=== PATIENT | female | born 1960 | race African-American/Black ===

== ENCOUNTER → 2022-12-19 | Day surgery (SDC) | payer OTHER ==
--- NOTE | 2022-12-19 12:03 | RAD REPORT ---
EXAM DESCRIPTION: US - Breast Core BX w/US Guidance - 12/19/2022 10:54 am CLINICAL HISTORY: Right breast mass COMPARISON: 12/12/2022 ultrasound TECHNIQUE: The risks, benefits alternatives to the procedure were explained to the patient and infor med consent obtained. Skin and subcutaneous tissues anesthetized with lidocaine. Under sonographic guidance, three 14 gauge vacuum assisted core biopsies of the mass within the right breast obtained. 2 centimeter specimens taken. Tissue given to pathology. Subsequently a localizing clip was placed into the mass. Patient experienced no immediate complication IMPRESSION: Vacuum assisted core biopsies of the right breast mass.
== END ==
LOC: DS 09:08
PROVIDERS: ATTEND Surgery
DX: C50.911 Malignant neoplasm of unspecified site of right female breast (principal); Z17.1 Estrogen receptor negative status [ER-]
CPT/HCPCS: 19083; 88305

== ENCOUNTER 2023-01-04 05:50 | Day surgery (SDC) | payer OTHER ==
--- NOTE | 2023-01-02 08:48 | RAD REPORT ---
EXAM DESCRIPTION: RAD - Chest Pa And Lat (2 Views) - 01/02/2023 8:35 am CLINICAL HISTORY: pre op for surgery, hypertension, diabetes, breast cancer COMPARISON: Breast Bilat W Wo Cont dated 12/08/2022; IMP 3D DIAG JOHN BILAT W/CAD dated 11/08/2022; ABHILASH AST/AXILLA, COMPLETE dated 12/12/2022; Breast Core BX w/US Guidance dated 12/19/2022 FINDINGS: Lines: None. Lungs: No evidence of edema or pneumonia. Pleural: No significant pleural effusions or pneumothorax. Cardiac: The heart size is within normal limits. Mediastinum: Within normal limits. Bones: No acute fractures. Other: None IMPRESSION: No acute cardiopulmonary disease.
--- NOTE | 2023-01-02 11:41 | EKG ---
Test Date: 2023-01-02 Test Time: 08:13:59 Coordinator Cardiopulmonary Services: LOIS MEASUREMENT RESULTS: Intervals: Rate: 79 IN: 166 QRSD: 78 QT: 382 QTc: 438 [place]: P: 89 IN: 166 QRS: 69 T: 64 INTERPRETIVE STATEMENTS: Normal sinus rhythm with sinus arrhythmia Normal ECG Compared to ECG 09/29/2016 09:55:05 No significant changes Electronically Signed On 01-02-23 11:41:13 CDT by Juan Manuel Parker
[2023-01-04] MEDS ORDERED: LIDOCAINE 1% MPF 5 ML VIAL ONE (06:15)
[2023-01-04] MEDS ORDERED: FENTANYL CITR 100 MCG/2 ML ONE ×2 (06:16→09:01)
[2023-01-04] MEDS ORDERED: dexAMETHasone 10 MG/ML VIAL ONE (06:16)
[2023-01-04] MEDS ORDERED: propofoL 200 MG/20 ML VIAL IV ONE ×2 (06:16→09:01)
[2023-01-04] MEDS ORDERED: EPINEPHRINE/PF 1 MG/ML AMP ONE (06:16)
[2023-01-04] MEDS ORDERED: MIDAZOLAM HCL 2 MG/2 ML INJ ONE ×2 (06:16→09:03)
[2023-01-04] MEDS ORDERED: BUPIVACAINE 0.25% PF 30 ML VIAL ONE (06:17)
[2023-01-04] MEDS ORDERED: NA CHLORIDE 0.9% 1,000 ML ONE ×2 (06:18→11:57)
[2023-01-04] MEDS ORDERED: CIPROFLOXACIN 400mg IV 400 MG/200 ML BAG IV ONE (06:19)
[2023-01-04] MEDS ORDERED: METHYLENE BLUE 0.5% 10 ML AMP ONE (08:29)
--- NOTE | 2023-01-04 08:40 | RAD REPORT ---
EXAM DESCRIPTION: NM - Lymphoscintigraphy - 01/04/2023 7:58 am CLINICAL HISTORY: pre mastectomy Right-sided breast cancer COMPARISON: Chest Pa And Lat (2 Views) dated 01/02/2023 FINDINGS: Preoperative lymphoscintigraphy were performed. Total of 29 microcuries lymphocele were in jected periareolar intradermal. Immediate scintigraphic shows good localization of radiopharmaceutica l.
--- NOTE | 2023-01-04 08:57 | RAD REPORT ---
EXAM DESCRIPTION: US - Brst,Preop NL Wire Init w/Guid - 01/04/2023 8:26 am CLINICAL HISTORY: N Right breast carcinoma. COMPARISON: Breast Core BX w/US Guidance dated 12/19/2022 FINDINGS: Preoperative diagnosis: Right breast carcinoma. Post operative diagnosis: Same. Conscious Sedation: None Fluoroscopy time: None Contrast used: None Estimated blood loss: Minimal The right breast was prepped and draped in the usual sterile fashion. 1% lidocaine was infiltrated in to the subcutaneous tissues for local anesthesia. Preoperative Kopan's acquire was placed into the ma ss of interest lower outer right breast using ultrasound guidance. The patient tolerated procedure we ll. IMPRESSION: Successful ultrasound-guided preoperative wire localization right breast.
[2023-01-04] MEDS ORDERED: LIDOCAINE 2% MPF 5 ML VIAL ONE (09:01)
[2023-01-04] MEDS ORDERED: ONDANSETRON 4 MG/2 ML VIAL ONE (09:08)
[2023-01-04] MEDS ORDERED: GLYCOPYRROLATE 0.2 MG/ML SYR ONE ×2 (09:09→09:48)
[2023-01-04] MEDS ORDERED: ROCURONIUM 50 MG/5 ML VIAL IV ONE ×2 (09:09→11:02)
[2023-01-04] MEDS ORDERED: NEOSTIGMINE 1 MG/ML -10 ML VIAL ONE (09:10)
[2023-01-04] MEDS ORDERED: EPHEDRINE SULF 50 MG/ML VIAL ONE (10:24)
[2023-01-04] MEDS ORDERED: Mastisol Adhesive Liq ONE (11:16)
--- NOTE | 2023-01-04 11:24 | P.OP ---
Date of Service: 01/04/23 Preop diagnosis: History of left breast cancer, status post left breast lumpectomy and axillary dissection and radiation treatment, left breast DCIS with implant and right breast cancer Postop diagnosis: Same Procedure performed: Healy node biopsy right axilla, needle localization and right breast mastectomy, left breast mastectomy and removal of left chest breast implant Surgeon: Missael Garcia MD Host/Hostess Restaurant: OMAR Alvarez Estimated blood loss: Minimal Specimen: Right axillary sentinel node, right breast, left breast and left breast implant Findings: As above, margins free and sentinel node negative for metastatic disease Anesthesia: General Complications: None Drains: IAN #10 flat1 on each side Fluids and blood products: Nonapplicable Disposition: Recovery room Operative note: After needle localization, patient brought to the OR and placed in the supine position. General anesthesia begun. Right nipple areolar region injected with methylene blue. Breast massaged. Patient prepped and draped in usual sterile fashion. Healy node counting device utilized per protocol. 3 cm incision made in the right axilla. A blue enlarged lymph node identified with sharp and blunt dissection. Counts recorded in the medical record and were appropriate for the identification of the sentinel node. Frozen section on the sentinel node revealed no evidence of metastatic disease. Vascular clips utilized in this wound as needed. Bleeding controlled cautery. 3-0 chromic used to approximate subcutaneous tissue and close skin. Ellipse of skin incision made over the right breast to include the needle localization area. Then flaps created superiorly to the clavicle, medially to the sternal border, inferiorly to the insertion of the rectus abdominis muscle and laterally to the anterior border of the latissimus dorsi. All breast tissue of the pectoralis fascia removed and bleeding controlled with cautery. The right breast removed and sent to pathology for frozen section and margin check. Margins were negative. Wound irrigated and bleeding controlled with cautery. Arthur-Osuna #10 flat drain was placed and secured with 3-0 nylon. 2-0 chromic and 3-0 chromic were used to reapproximate subcutaneous tissue and close skin. Sterile dressing applied. A ellipse of skin on the left breast to include the nipple areolar complex made with a 15 blade. A similar mastectomy performed on the left side as the right side. The only difference was that there was a capsule containing the implant which was removed. Wound irrigated and bleeding controlled cautery. Arthur-Osuna #10 flat placed and secured with 3-0 nylon. 2-0 chromic and 3-0 chromic used to reapproximate subcutaneous tissue and close skin. Sterile dressing applied. Patient awakened and taken to recovery room in good general condition. CC: Dr. Soriano's and Dr. Georges's office
[2023-01-04] MEDS ORDERED: HYDROCODONE/APAP 7.5/325 MG TAB PO PRN (11:28)
[2023-01-04 12:17] VITALS: O2SAT 100
[2023-01-04 13:28] VITALS: BP 137/66; TEMP 97
== END 2023-01-04 13:24 | disposition home or self-care (01) ==
LOC: OR 05:50
PROVIDERS: ATTEND Surgery
PROC: 0HTV0ZZ Resection of Bilateral Breast, Open Approach (ICD-10-PCS; principal; 2023-01-04 09:00)
PROC: 07T50ZZ Resection of Right Axillary Lymphatic, Open Approach (ICD-10-PCS; 2023-01-04 09:00)
DX: C50.911 Malignant neoplasm of unspecified site of right female breast (principal); D05.12 Intraductal carcinoma in situ of left breast; Z17.1 Estrogen receptor negative status [ER-]
CPT/HCPCS: 19307; 93005; 82947 ×2; 88300; 88307 ×2; 88311; 88333; 71046; 19285; 78195; J2704; J2710; J0171; J2001 ×2; J2250 ×2; J3010 ×2; J1100; J2405; J0744; J7030 ×2; A9520

== ENCOUNTER 2023-02-14 06:22 | Day surgery (SDC) | payer OTHER ==
[2023-02-14] MEDS ORDERED: CIPROFLOXACIN 400mg IV 400 MG/200 ML BAG IV ONE (06:46)
[2023-02-14] MEDS ORDERED: NA CHLORIDE 0.9% 1,000 ML ONE (06:46)
[2023-02-14] MEDS ORDERED: NS 0.9% VIAL 20 ML ONE (07:24)
[2023-02-14] MEDS ORDERED: HEPARIN 5000 UNIT/ML 1 ML VIAL ONE (07:25)
[2023-02-14] MEDS ORDERED: LIDOCAINE 1% MPF 30 ML VIAL ONE (07:25)
[2023-02-14] MEDS ORDERED: propofoL 200 MG/20 ML VIAL IV ONE ×2 (07:43→08:19)
[2023-02-14] MEDS ORDERED: MIDAZOLAM HCL 2 MG/2 ML INJ ONE (07:43)
[2023-02-14] MEDS ORDERED: LIDOCAINE 2% MPF 5 ML VIAL ONE (07:47)
[2023-02-14] MEDS ORDERED: Mastisol Adhesive Liq ONE (08:29)
--- NOTE | 2023-02-14 08:38 | RAD REPORT ---
EXAM DESCRIPTION: RAD - Fluoroscopy <1 Hour - 02/14/2023 8:32 am CLINICAL HISTORY: Venous catheter insertion. PORT A CATH COMPARISON: Brst,Preop NL Wire Init w/Guid dated 01/04/2023 FINDINGS: Fluoroscopic imaging is submitted from placement of a venous catheter. Details of the pro cedure not available. Fluoroscopy time: 0.1 minutes
[2023-02-14] MEDS ORDERED: HYDROCODONE/APAP 7.5/325 MG TAB PO PRN (08:39)
[2023-02-14] MEDS ORDERED: DIPHENHYDRAMINE 50 MG/ML VIAL ONE (08:41)
--- NOTE | 2023-02-14 08:42 | P.OP ---
Date of Service: 02/14/23 Preop diagnosis: Bilateral breast cancer Postop diagnosis: Same Procedure performed: Right IJ Port-A-Cath placement, interpretation of intraoperative fluoroscopy Surgeon: Missael Garcia MD String Studies Director: Natty NELSON Estimated blood loss: Minimal Specimen: None Findings: Normal anatomy Anesthesia: MAC Complications: None Drains: None Fluids and blood products: Nonapplicable Disposition: Recovery room Operative note: Patient brought to the OR and placed in the supine position. MAC anesthesia begun. Patient prepped and draped in usual sterile fashion. Lidocaine 1% infiltrated locally. 18-gauge needle used to access the right internal jugular vein. Guidewire passed and position confirmed with fluoroscopy. 3 cm counterincision made on the right anterior chest. Pocket created. Bleeding controlled cautery. Tunneling device used to tunnel the catheter between the 2 wounds. Seldinger technique used. Tip of the catheter placed in the SVC under fluoroscopy. Catheter cut to appropriate size. Catheter attached to the Port-A-Cath device. 4 Device attached to the subcutaneous tissue with 3-0 Vicryl. 3-0 chromic used to reapproximate subcu tissue and close skin. Port flushed with heparin and packed with heparin with good blood flow. Sterile dressing applied. Patient awakened and taken to recovery room in good general condition. A chest x-ray has been ordered. CC: Dr. Georges's office
--- NOTE | 2023-02-14 09:04 | RAD REPORT ---
EXAM DESCRIPTION: RAD - Chest Single View - 02/14/2023 8:56 am CLINICAL HISTORY: Status post Port-A-Cath placement Chest pain. COMPARISON: Chest Pa And Lat (2 Views) dated 01/02/2023 FINDINGS: Portable technique limits examination quality. The lungs are grossly clear. The heart is normal in size. No lytic or blastic bone lesion. Right axil gracy dissection clips. Right-sided venous catheter its tip in the SVC. No postprocedure pneumothorax.
[2023-02-14 09:11] VITALS: TEMP 97.2
[2023-02-14 10:11] VITALS: BP 131/63; O2SAT 98
== END 2023-02-14 09:50 | disposition home or self-care (01) ==
LOC: OR 06:22
PROVIDERS: ATTEND Surgery
PROC: 0JH60WZ Insertion of Totally Implantable Vascular Access Device into Chest Subcutaneous Tissue and Fascia, Open Approach (ICD-10-PCS; principal; 2023-02-14 07:30)
DX: C50.911 Malignant neoplasm of unspecified site of right female breast (principal); C50.912 Malignant neoplasm of unspecified site of left female breast
CPT/HCPCS: 82947 ×2; 71045; 76000; 36561; J1644 ×2; A4216; J2704 ×2; J1200; J2001 ×2; J2250; J0744; J7030; C1788

== ENCOUNTER 2023-11-08 06:12 | Inpatient (IN) | payer OTHER ==
[2023-11-08] MEDS ORDERED: FENTANYL CITR 100 MCG/2 ML ONE (06:53)
[2023-11-08] MEDS ORDERED: propofoL 200 MG/20 ML VIAL IV ONE (06:53)
[2023-11-08] MEDS ORDERED: LIDOCAINE 1% MPF 5 ML VIAL ONE (06:53)
[2023-11-08] MEDS ORDERED: MIDAZOLAM HCL 2 MG/2 ML INJ ONE (06:54)
[2023-11-08] MEDS: NA CHLORIDE 0.9% 1,000 ML ONE (06:55)
[2023-11-08] MEDS: LIDOCAINE 1% MPF 30 ML VIAL ONE (06:57)
[2023-11-08] MEDS: BUPIVACAINE 0.5% PF 10 ML VIAL ONE (06:58)
[2023-11-08 07:29] LABS: Anion Gap 7.6 mEq/L (5.0-15.0); Potassium 4.6 mEq/L (3.5-5.1)
[2023-11-08] MEDS: CIPROFLOXACIN 400mg IV 400 MG/200 ML BAG IV ONE (07:35)
[2023-11-08 07:40] LABS: Absolute Basophils 0.1 K/uL (0-0.5); Absolute Eosinophils 1.3 K/uL (0-0.5); Absolute Monocytes 0.6 K/uL (0.1-1.3); Absolute Neutrophil 3.8 K/uL (1.8-8.0); Basophils % 0.8 % (0-1.3); Eosinophils % 15.1 % (0-4.4); Hematocrit 34.7 % (36.0-45.0); Hemoglobin 11.6 g/dL (12.0-15.0); Lymphocytes % 34.2 % (15.3-44.8); MCH 27.9 pg (27.0-35.0); MCHC 33.5 g/dL (32.0-36.0); MCV 83.3 fL (80-100); MPV 7.9 fL (7.6-11.3); Neutrophils % 42.9 % (41.7-73.7); Nucleated Red Blood Cells % 0.1 % (0-0); PT Prothrombin Time 12.5 SECONDS (9.5-12.5); PTT, Activated Partial Thromb 34.7 SECONDS (24.3-36.9); Platelets 297 thou/uL (152-406); Protime INR 1.14; RBC Red Blood Cell Count 4.16 M/uL (3.86-4.86); Red Cell Distribution Width 14.6 % (12.1-15.2)
[2023-11-08] MEDS ORDERED: EPHEDRINE SULF 50 MG/ML VIAL ONE (07:51)
[2023-11-08] MEDS: NOREPINEPHRINE 4 MG in D5W 250 ML IV SCH (09:00)
--- NOTE | 2023-11-08 09:12 | RAD REPORT ---
EXAM DESCRIPTION: RADChest Single View11/08/2023 8:42 am CLINICAL HISTORY: S/P INTUBATION COMPARISON: Chest Single View dated 02/14/2023; Chest Pa And Lat (2 Views) dated 01/02/2023hest Singl e View dated 02/14/2023; Chest Pa And Lat (2 Views) dated 01/02/2023hest Single View dated 02/14/2023; Chest Pa And Lat (2 Views) dated 01/02/2023hest Single View dated 02/14/2023; Chest Pa And Lat (2 View s) dated 01/02/2023 TECHNIQUE: Portable AP view of the chest. FINDINGS: Endotracheal tube terminates 3.5 cm above the anthony. Central interstitial prominence and prominence of the central vascular markings. No pneumothorax or effusion. The cardiomediastinal cont ours are unremarkable. IMPRESSION: Satisfactory positioning of the endotracheal tube. Sequelae of central venous congestion /CHF.
--- NOTE | 2023-11-08 09:16 | P.HP ---
Patient History Date of Service: 11/08/23 Allergies Penicillins Allergy (Verified 02/10/23 08:26) unknown shellfish derived Allergy (Verified 02/10/23 08:26) Anaphylaxis Home Medications: Clopidogrel Bisulfate [Plavix] 75 mg PO DAILY AFTER SUPPER 09/29/16 Glimepiride [Amaryl] 1 mg PO BID 09/29/16 Metformin HCl [Glucophage] 500 mg PO DAILY 09/29/16 carvediloL [Coreg] 25 mg PO BID 09/29/16 Amlodipine [Norvasc] 10 mg PO DAILY 01/02/23 Physical Examination - Vital Signs Temperature: 98.3 F Blood Pressure: 122/50 Pulse: 84 Respirations: 16 - Studies Laboratory Data (last 24 hrs) 11/08/23 11/08/23 11/08/23 07:20 07:20 06:55 WBC 8.90 Hgb 11.6 L Hct 34.7 L Plt Count 297 PT 12.5 INR 1.14 APTT 34.7 Sodium 142 Potassium 4.6 BUN 23 H Creatinine 0.70 Glucose 85 Assessment and Plan - Advance Directives Does patient have a Living Will: No Does patient have a Durable POA for Healthcare: No
[2023-11-08] MEDS: propofoL 1,000 MG/100 ML VIAL IV SCH (09:25)
--- NOTE | 2023-11-08 09:31 | P.OP ---
Date of Service: 11/08/23 Preop diagnosis: Breast cancer, status post Port-A-Cath placement Postop diagnosis: Same Procedure performed: Removal of Port-A-Cath Surgeon: Missael Garcia MD Conference Center Manager: None Estimated blood loss: Minimal Specimen: Port-A-Cath Findings: Normal anatomy Anesthesia: General Complications: Patient had bradycardia followed by hypotension requiring CPR in the middle of the surgery. Wound was closed with yanira. CODE BLUE was called. Patient was intubated and resuscitated via ACLS protocol and taken to the ICU in critical condition. Drains: None Fluids and blood products: See medical record for medications. Disposition: ICU Operative note: Patient brought to the OR and placed in supine position. Initially, MAC anesthesia begun. Patient prepped and draped in usual sterile fashion. Lidocaine 1% infiltrated locally. 3 cm incision made over the Port-A-Cath. Port-A-Cath identified with sharp and blunt dissection. Port-A-Cath removed and sent to pathology as specimen. During this time, patient became hypotensive, hypoxic and bradycardic. Patient condition worsened. Therefore, patient was intubated and CPR was started. Wound was closed with yanira. ACLS protocol was followed. Patient was resuscitated and taken to ICU intubated and in critical condition. Patient's condition was discussed in detail with the . CC: Dr. Georges's office
--- NOTE | 2023-11-08 09:38 | P.HP ---
Certification for Inpatient Patient History Date of Service: 11/08/23 History of Present Illness: 63 year old female with HTN, breast cancer, s/p 02/10 B) mastectomy, on chemo is being transferred from OR for cardiac arrest. She was unable to tolerate chemo, was having port a cath removed in surgery when she was not ventilating, when into cardiac arrest, code blue was called, patient recieved 4 rounds of EPI, 4 Atropine, was intuabed, transfered to ICU for s/p cardiac arrest, acute respiratory failure. is at bedside is primary history reports patient was unable to tolerate chemo, has had 60 wt loss, severe peripheral neuropathy. fatigue, unable to ambulate independantly after 6 rounds of chemo, Onc followed by Dr Georges. reports his as had wheezing, last week, however no prior history of Asthma. She was AOX4 prior to surgery/chemo, resides at home. Transferred to ICU after Intubation on ventilator for managment. Plan to admit for Acute respiratory failure, cardiac arrest, hypotensive shock, Dr Wilde to consult for pulmonary, respiratory failure managment. Laboratory evaluation, Microcytic anemia, HH 11.6/34.7, ANILA Bun 23/0.7, CXR after intubation, Satisfactory positioning of the endotracheal tube. Sequelae of central venous congestion/CHF, <Natty Garcia - Last Filed: 11/08/23 10:02> Date of Service: 11/08/23 <Domenica Anna - Last Filed: 11/08/23 12:43> Allergies Penicillins Allergy (Verified 02/10/23 08:26) unknown shellfish derived Allergy (Verified 02/10/23 08:26) Anaphylaxis Home Medications: Clopidogrel Bisulfate [Plavix] 75 mg PO DAILY AFTER SUPPER 09/29/16 Glimepiride [Amaryl] 1 mg PO BID 09/29/16 Metformin HCl [Glucophage] 500 mg PO DAILY 09/29/16 carvediloL [Coreg] 25 mg PO BID 09/29/16 Amlodipine [Norvasc] 10 mg PO DAILY 01/02/23 Review of Systems per HPI <Natty Garcia - Last Filed: 11/08/23 10:02> Physical Examination - Vital Signs Temperature: 98.3 F Blood Pressure: 122/50 Pulse: 84 Respirations: 16 - Physical Exam General: Alert, Unresponsive, Other HEENT: Atraumatic, Normocephalic Neck: Supple, JVD not distended Respiratory: Expiratory wheezes, Inspiratory wheezes, Other (on mechanical ventilation) Cardiovascular: No edema, Normal pulses, Other (hypotensive shock ) Capillary refill: <2 Seconds Gastrointestinal: Normal bowel sounds, Soft and benign Musculoskeletal: No clubbing, No swelling Integumentary: No rashes, No breakdown Neurological: Other (sedated on propopfol) Urinary: Arriaga catheter External genitalia: No lesions - Studies Laboratory Data (last 24 hrs) 11/08/23 11/08/23 11/08/23 07:20 07:20 06:55 WBC 8.90 Hgb 11.6 L Hct 34.7 L Plt Count 297 PT 12.5 INR 1.14 APTT 34.7 Sodium 142 Potassium 4.6 BUN 23 H Creatinine 0.70 Glucose 85 <Natty Garcia - Last Filed: 11/08/23 10:02> - Studies Laboratory Data (last 24 hrs) 11/08/23 11/08/23 11/08/23 07:20 07:20 06:55 WBC 8.90 Hgb 11.6 L Hct 34.7 L Plt Count 297 PT 12.5 INR 1.14 APTT 34.7 Sodium 142 Potassium 4.6 BUN 23 H Creatinine 0.70 Glucose 85 <Domenica Anna - Last Filed: 11/08/23 12:43> Assessment and Plan - Plan Assessment Plan Cardiac arrest Acute hypoxic respiratory failure Cardiogenic shock from cardiac arrest Admit to ICU, intubated after cardiac arrest in surgery Pulmonary Consult for Vent manament Nebs, solumedrol, Norepi, Propofol for sedation Surg consulted for Central IV line Pressors ABG ordered CT PE ordered rule out PE labs ddimer, cbc, bmp, mag, bnp, ordered ECHO ordered Breast cancer unkn stage B) breast mastectomy On chemotherapy sees Dr Georges Unintentional weight loss >60 lbs daily wt, gaggerman consult when more alert Essential HTN Resume home meds when tolerating PO Diabetes type 2 ack achs, ssi Full Code DVT Lovenox Diet NPO GI PPI BID Disposition: Home, independant prior to admission Discharge Plan: Home - Advance Directives Does patient have a Living Will: No Does patient have a Durable POA for Healthcare: No - Code Status/Comfort Care Code Status: Full Code Critical Care: Yes Time Spent Managing Pts Care (In Minutes): 65 <Natty Garcia - Last Filed: 11/08/23 10:02> - Plan Pt seen and examined. I agree with the note by the MANAGER OF PHARMACY. Pt is a 63 yo female with HTN, DMII, breast cancer s/p mastectomy and on chemotherapy who had cardiac arrest while in the OR. Pt was in the OR for removal of Port-a-cath when she became unresponsive. Code blue was called and ROSC was obtained after patient received 4 rounds of EPI, 4 Atropine. Pt was intubated and transferred to the ICU. Her reports decline in her howard after she started taking keytruda and taxol. The meds were stopped 3 months ago but she continued to have side effects of inability to walk, constipation and peripheral neuropathy. Pt was admitted in the ICU for ventilator management. At bedside. pt is unresponsive. She is getting propofol. lab studies show D-dimer 9953, lactate 3.1, troponin 149.9, BNP 246, wbc 8.9, Hgb 11.6, cr 4.6, Cr 0.7, glucose 85, ABG shows pH 7.1, pCO@ 85 and pO2 447. At bedside, pt is intubated. A/P: Acute resp failure with hypoxia: ABG shows respiratory acidosis. Pulm is managing vent. Will continue solumedrol, levophed, Propofol and prn duoneb. Will f/u CXR NSTEMI; troponin is 149.9. Will trend troponin and continue therapeutic lovenox. Will f/u Echo. Consulted Cardiology DM Ii; Continue accuchek, SSI and ADA diet Lactic acidosis: lactate is 3.1. Will trend lactate Hx of breast cancer: Will f/u with Dr. Georges on outpt. Gen surgeon removed PAC on right chest wall. Htn: Will monitor vital signs. Hyperkalemia: K is 4.6. Will monitor. DVT ppx: lovenox Code: full. <Domenica Anna - Last Filed: 11/08/23 12:43>
[2023-11-08] MEDS: FUROSEMIDE 40 MG/4 ML VIAL IV ONE (10:05)
[2023-11-08] MEDS ORDERED: GLUCAGON 1 MG/VIAL IM PRN (10:34)
[2023-11-08] MEDS ORDERED: ALBUTEROL 2.5 MG/3 ML NEB SOL NEB PRN (10:34)
[2023-11-08] MEDS ORDERED: SODIUM CHLORIDE 0.9% 10ML INJ IV PRN (10:34)
[2023-11-08] MEDS ORDERED: D50W 25 GM/50 ML SYRINGE IV PRN (10:34)
[2023-11-08] MEDS ORDERED: IPRATROPIUM BROM 0.5MG/2.5ML NEB PRN (10:34)
[2023-11-08 10:38] LABS: Arterial Blood Carboxyhemoglob 0.1 % (0-1.5); Blood Gas Oxyhemoglobin 97.8 % (94-97); Blood Gas THB 9.8 g/dl (12-18)
[2023-11-08] MEDS ORDERED: KETOROLAC 30 MG/ML INJ ONE (10:50)
[2023-11-08] MEDS ORDERED: ONDANSETRON 4 MG/2 ML VIAL ONE (10:50)
[2023-11-08] MEDS ORDERED: dexAMETHasone 4 MG/ML VIAL ONE (10:50)
[2023-11-08] MEDS ORDERED: LIDOCAINE 100 MG/5 ML SYRINGE IV ONE (11:25)
[2023-11-08] MEDS ORDERED: NA CHLORIDE 0.9% 1,000 ML IV ONE (11:25)
[2023-11-08] MEDS ORDERED: EPINEPHrine 1 MG/10 ML SYR IV ONE (11:25)
[2023-11-08] MEDS ORDERED: ATROPINE SULF 1 MG/10 ML SYR IV ONE (11:25)
[2023-11-08] MEDS ORDERED: PANTOPRAZOLE 40 MG INJ ONE (11:42)
[2023-11-08] MEDS ORDERED: METHYLPREDNISOLONE 125 MG INJ ONE ×2 (11:42→18:01)
[2023-11-08] MEDS ORDERED: FUROSEMIDE 40 MG/4 ML VIAL ONE (11:42)
--- NOTE | 2023-11-08 11:46 | P.CNS ---
Date of Consult: 11/08/23 Reason for Consult: Respiratory failure Chief Complaint: Respiratory failure patient on a ventilator History of Present Illness: Patient is 63 years of age with a history of breast cancer bilateral max mastectomies admitted for removal of a Port-A-Cath Respiratory distress was intubated transferred to the ICU gases shows acidosis with hypercapnia most likely acute hypercapnic respiratory acidosis family members present at the bedside in the ICU according to the got worse after patient started taking Keytruda and Taxol which was stopped about 3 months ago has been experiencing side effects which include constipation and peripheral neuropathy no prior history of pulmonary complaints no prior history of dyspnea obstructive airways disease Allergies Penicillins Allergy (Verified 02/10/23 08:26) unknown shellfish derived Allergy (Verified 02/10/23 08:26) Anaphylaxis Home Medications: Clopidogrel Bisulfate [Plavix] 75 mg PO DAILY AFTER SUPPER 09/29/16 Glimepiride [Amaryl] 1 mg PO BID 09/29/16 Metformin HCl [Glucophage] 500 mg PO DAILY 09/29/16 carvediloL [Coreg] 25 mg PO BID 09/29/16 Amlodipine [Norvasc] 10 mg PO DAILY 01/02/23 - Past Medical/Surgical History -: Diabetes -: Hypertension Review of Systems is unable to be obtained Physical Examination Temp Pulse Resp BP Pulse Ox 98.3 F 87 16 122/50 L 100 11/08/23 10:02 11/08/23 10:14 11/08/23 10:02 11/08/23 10:02 11/08/23 10:14 General: Unresponsive Neck: Supple Respiratory: Clear to auscultation bilaterally Gastrointestinal: Normal bowel sounds, Soft and benign Musculoskeletal: No clubbing, No contractures Laboratory Data (last 24 hrs) 11/08/23 11/08/23 11/08/23 07:20 07:20 06:55 WBC 8.90 Hgb 11.6 L Hct 34.7 L Plt Count 297 PT 12.5 INR 1.14 APTT 34.7 Sodium 142 Potassium 4.6 BUN 23 H Creatinine 0.70 Glucose 85 - Problems (1) Respiratory failure Current Visit: Yes Status: Acute Plan: Patient is 63 years of age developed acute respiratory failure shortly after removal of her portacatheter only intubated in the ICU has deteriorated since patient started taking Keytruda and Taxol patient has bilateral mastectomies for breast cancer so far chemistries and CBC unremarkable agree with CT pulmonary angiogram x-ray no obvious pulmonary edema or pneumonia patient was also hypotensive plan to wean off the Levophed drip. With steroids signs all satisfactory currently oxygenation satisfactory for further workup including an echocardiogram and a CT pulmonary angiogram Qualifiers: Chronicity: acute
[2023-11-08 11:51] LABS: Thyroid Stimulating Hormone 9.06 uIU/mL (0.358-3.740)
[2023-11-08 11:53] LABS: Troponin High Sensitivity 149.9 pg/mL (<58.9)
[2023-11-08] MEDS: METHYLPREDNISOLONE 125 MG INJ IV SCH (11:58)
[2023-11-08] MEDS: PANTOPRAZOLE 40 MG INJ IVP SCH (11:58)
[2023-11-08] MEDS: METHYLPREDNISOLONE 125 MG INJ IV ONE (11:58)
[2023-11-08] MEDS: INSULIN REGULAR (HUMAN) 100 UNIT/ML SQ SCH (12:00)
[2023-11-08] MEDS: DEXMEDETOMIDINE HCL 200 MCG in NA CHLORIDE 0.9% 98 ML IV SCH (13:20)
[2023-11-08] MEDS ORDERED: ENOXAPARIN 60 MG/0.6 ML SQ ONE (14:06)
[2023-11-08] MEDS: ENOXAPARIN 60 MG/0.6 ML SQ SCH (14:07)
[2023-11-08 14:32] VITALS: BMI 23.6
--- NOTE | 2023-11-08 14:48 | RAD REPORT ---
EXAM DESCRIPTION: CT - Head C Spine Mpr Wo Con - 11/08/2023 2:21 pm CLINICAL HISTORY: Cardiac arrest COMPARISON: None. TECHNIQUE: Computed axial tomography of the head and cervical spine was obtained. Sagittal and coronal reconstruction was performed. All CT scans are performed using dose optimization technique as appropriate and may include automated exposure control or mA/KV adjustment according to patient size. FINDINGS: An intracranial bleed is not seen. The ventricles are normal in caliber. 8 millimeter low-density area right occipital lobe. 4 millimeter calcification left cerebellum may secondary to prior inflammation. An extra-axial fluid collection is not noted. Fluid within the visualized sinuses and mastoids is not seen A cervical fracture is not visualized. No dislocation is noted. 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 No acute intracranial abnormality is seen. A cervical fracture is not visualized. If the patient continues to have symptoms to suggest intracranial /spinal cord/spinal canal pathology then MRI would be recommended
--- NOTE | 2023-11-08 14:55 | RAD REPORT ---
EXAM DESCRIPTION: CT - Chest For Pe Angio - 11/08/2023 2:39 pm CLINICAL HISTORY: Cardiac arrest/respiratory failure COMPARISON: None. TECHNIQUE: Dynamically enhanced axial 3 mm thick images of the chest were obtained during administra tion of 100 mL Isovue 370 IV contrast. Coronal and oblique reconstruction images were generated and r eviewed. Exam utilizes a protocol for optimal evaluation of pulmonary arterial tree. Maximum intensity projections 3D imaging was utilized All CT scans are performed using dose optimization technique as appropriate and may include automated exposure control or mA/KV adjustment according to patient size. FINDINGS: A pulmonary embolus is not seen. A thoracic aortic aneurysm is not noted. Bovine aorta A pleural effusion is not seen. A pericardial effusion is not seen. Mild to moderate bilateral predominantly ground-glass opacities within the lungs Endotracheal tube in good position 15 millimeter collection of air within subcutaneous tissue anterior right chest. No fluid component. IMPRESSION: Negative for a pulmonary embolism. Mild to moderate predominantly ground-glass opacities within the lungs may represent pulmonary edema or infection.
[2023-11-08] MEDS: LORazepam 2 MG/ML VIAL IV PRN (15:21)
[2023-11-08] MEDS: METRONIDAZOLE 500mg IVPB 500 MG/100 ML BAG IV SCH (15:21)
[2023-11-08] MEDS ORDERED: CEFEPIME 2 GM VIAL ONE ×2 (15:35→20:58)
[2023-11-08] MEDS ORDERED: NA CHLORIDE 0.9% 100 ML ONE ×2 (15:35→20:58)
[2023-11-08] MEDS: CEFEPIME 2 GM in NA CHLORIDE 0.9% 100 ML IV SCH (15:39)
[2023-11-08 16:29] LABS: Arterial Blood Carboxyhemoglob 0.7 % (0-1.5); Blood Gas THB 11.9 g/dl (12-18); Blood O2 Saturation 99.4 % (92-98.5)
[2023-11-08] MEDS: NA CHLORIDE 0.9% IV SCH (16:30)
[2023-11-08] MEDS: DEXMEDETOMIDINE HCL IV SCH (16:30)
[2023-11-08] MEDS ORDERED: PIPER TAZO 3.375 GM in NA CHLORIDE 0.9% 100 ML IV SCH (17:00)
--- NOTE | 2023-11-08 18:34 | P.CNS ---
Date of Consult: 11/08/23 Chief Complaint: Respiratory failure patient on a ventilator History of Present Illness: Patient with PMH of Stroke, breat cancer s/p bilateral mastectomy presented to surgery for perm cath removal, no cardiac history except high BP, patient beacme bradycardiac and hypotensive during procedure and coded for few minutes, she went into repsiratory failure, not sure what was the rhythm during the code, cardiology was consulted for mild elevated troponin, talked to family and they deny patient complaining of chest pain prior, only SOB but she she has no peoplesoft programmer or prior cardiac work up. Allergies Penicillins Allergy (Verified 02/10/23 08:26) unknown shellfish derived Allergy (Verified 02/10/23 08:26) Anaphylaxis Home Medications: Clopidogrel Bisulfate [Plavix] 75 mg PO DAILY AFTER SUPPER 09/29/16 Glimepiride [Amaryl] 1 mg PO BID 09/29/16 Metformin HCl [Glucophage] 500 mg PO DAILY 09/29/16 carvediloL [Coreg] 25 mg PO BID 09/29/16 Amlodipine [Norvasc] 10 mg PO DAILY 01/02/23 - Past Medical/Surgical History Diabetic: Yes -: Diabetes -: Hypertension -: CVA-7 yrs ago -: Breast cancer -22yrs ago -: Breast cancer-diagnosed 2022 -: Double Mastectomy-2022 -: CSection -: Carpal Tunnel Surgery - Family History Father Medical History: Stroke Notes: CVA x2 Mother Medical History: Cancer Sister Medical History: Cancer Brother Medical History: Diabetes - Social History Alcohol use: No CD- Drugs: No Caffeine use: Yes Place of Residence: Home Review of Systems is unable to be obtained (patient is intubated and sedated) Physical Examination Temp Pulse Resp BP Pulse Ox 96.9 F 81 16 87/58 L 100 11/08/23 16:00 11/08/23 16:00 11/08/23 16:00 11/08/23 16:00 11/08/23 16:00 General: Other (intubated and sedated) HEENT: Atraumatic Neck: Supple, JVD not distended Respiratory: Clear to auscultation bilaterally Cardiovascular: No edema, Normal S1 S2 Gastrointestinal: Normal bowel sounds Laboratory Data (last 24 hrs) 11/08/23 11/08/2324 07:20 07:20 06:55 WBC 8.90 Hgb 11.6 L Hct 34.7 L Plt Count 297 PT 12.5 INR 1.14 APTT 34.7 Sodium 142 Potassium 4.6 BUN 23 H Creatinine 0.70 Glucose 85 - Problems (1) Cardiac arrest Current Visit: Yes Status: Acute Plan: Not clear what was the exact etiology behind patient arrest, EKG reviewed and shows some ST depressions in inferolateral leads but no ST elevations, echo was reviewed and shows normal LV and RV systolic function. agree with trending troponin agree with therapeutic lovenox at this time and will continue to monitor hemodynamics. (2) Hypertension Current Visit: Yes Status: Acute Plan: Patient BP is soft, so continue to monitor, pressors only needed to keep MAP more than 65. (3) Respiratory failure Current Visit: Yes Status: Acute Plan: Continue vent support Qualifiers: Chronicity: acute
[2023-11-08] MEDS ORDERED: INFLUENZA VACCINE (for 6+ mo) 0.5 ML DOSE IMVAC ONE (20:00)
[2023-11-09] MEDS ORDERED: LORazepam 2 MG/ML VIAL ONE ×2 (01:32→06:23)
[2023-11-09] MEDS ORDERED: METHYLPREDNISOLONE 125 MG INJ ONE ×4 (02:06→17:39)
[2023-11-09 02:45] LABS: Absolute Lymphocytes (CBC) 1.2 K/uL (0.7-4.9); Absolute Monocytes 0.2 K/uL (0.1-1.3); Absolute Neutrophil 11.2 K/uL (1.8-8.0); Eosinophils % 0.1 % (0-4.4); Hematocrit 32.7 % (36.0-45.0); Hemoglobin 10.8 g/dL (12.0-15.0); Lymphocytes % 9.5 % (15.3-44.8); MCH 27.5 pg (27.0-35.0); MCHC 33.1 g/dL (32.0-36.0); MPV 7.8 fL (7.6-11.3); Monocytes % 1.3 % (3.3-12.3); Neutrophils % 89.1 % (41.7-73.7); Platelets 275 thou/uL (152-406); RBC Red Blood Cell Count 3.94 M/uL (3.86-4.86); Red Cell Distribution Width 14.5 % (12.1-15.2)
[2023-11-09 03:04] LABS: Anion Gap 10.8 mEq/L (5.0-15.0); Magnesium 1.5 mg/dL (1.6-2.4); Potassium 3.8 mEq/L (3.5-5.1)
[2023-11-09] MEDS ORDERED: METRONIDAZOLE 500mg IVPB 500 MG/100 ML BAG IV ONE (05:52)
[2023-11-09] MEDS ORDERED: NA CHLORIDE 0.9% 100 ML ONE ×3 (06:14→21:21)
[2023-11-09] MEDS ORDERED: CEFEPIME 2 GM VIAL ONE ×3 (06:14→21:21)
--- NOTE | 2023-11-09 06:48 | ECHO ---
HEIGHT: 5 ft 5 in WEIGHT: 142 lb 0 oz DATE OF STUDY: 11/08/[address]: Natty Garcia [employer] OFFICER-Trudy 2-DIMENSIONAL: YES M.MODE: YES DOPPLER: YES COLOR FLOW: YES TDS: PORTABLE: YES DEFINITY: BUBBLE STUDY: DIAGNOSIS: RESPIRATORY FAILURE/ RESPIRATORY ARREST CARDIAC HISTORY: CATHERIZATION: SURGERY: PROSTHETIC VALVE: PACEMAKER: MEASUREMENTS (cm) DIASTOLIC (NORMALS) SYSTOLIC (NORMALS) IVSd 0.8 (0.6-1.2) LA Diam 3.2 (1.9-4.0) LVEF 65% LVIDd 3.3 (3.5-5.7) LVIDs 2.2 (2.0-3.5) %FS 34% LVPWd 1.0 (0.6-1.2) Ao Diam 2.9 (2.0-3.7) 2 DIMENSIONAL ASSESSMENT: RIGHT ATRIUM: NORMAL LEFT ATRIUM: NORMAL RIGHT VENTRICLE: NORMAL LEFT VENTRICLE: NORMAL TRICUSPID VALVE: MILD TRICUSPID REGURGITATION MITRAL VALVE: NORMAL PULMONIC VALVE: NORMAL AORTIC VALVE: NORMAL PERICARDIAL EFFUSION: TRACE AORTIC ROOT: NORMAL LEFT VENTRICULAR WALL MOTION: NORMAL DOPPLER/COLOR FLOW: NORMAL COMMENTS: 1. NORMAL LEFT VENTRICULAR SYSTOLIC FUNCTION, EJECTINO FRACTION 65%, NORMAL WALL MOTION 2. NORMAL DIASTOLIC FUNCTION 3. MILD TRICUSPID REGURGITATION, RIGHT VENTRICULAR SYSTOLIC PRESSURE 35-40 mmHg 4. INFERIOR VENA CAVA COLLAPSING TECHNOLOGIST: [employer]
[2023-11-09] MEDS: KCL 20 MEQ/100 mL IVPB 20 MEQ/100 ML BAG IV SCH (08:00)
--- NOTE | 2023-11-09 08:11 | P.PN ---
Subjective Date of Service: 11/09/23 Chief Complaint: Respiratory failure patient on a ventilator Subjective: Improving Status postcardiac arrest, currently being weaned off the vent. Family at bedside General: , sedated, Other HEENT: Atraumatic, Normocephalic Neck: Supple, JVD not distended Respiratory: Expiratory wheezes, Inspiratory wheezes, Other (on mechanical ventilation) Cardiovascular: No edema, Normal pulses, Other (hypotensive shock on Levophed) Capillary refill: <2 Seconds Gastrointestinal: Normal bowel sounds, Soft and benign Musculoskeletal: No clubbing, No swelling Integumentary: No rashes, No breakdown Neurological: Other (sedated on propopfol) <Natty Garcia - Last Filed: 11/09/23 17:15> Date of Service: 11/09/23 <Domenica Anna - Last Filed: 11/09/23 22:24> Review of Systems per HPI <Natty Garcia - Last Filed: 11/09/23 17:15> Physical Examination - Vital Signs Temperature: 97.8 F Blood Pressure: 116/67 Pulse: 67 Respirations: 14 Pulse Ox (%): 100 - Studies Laboratory Data (last 24 hrs) 11/09/23 11/09/23 11/09/23 02:34 02:34 02:34 WBC 12.50 H Hgb 10.8 L Hct 32.7 L Plt Count 275 Sodium 144 Potassium 3.8 D BUN 28 H Creatinine 0.75 Glucose 188 H Phosphorus 4.5 Magnesium 1.5 L Triglycerides 69 Cholesterol 147 HDL Cholesterol 29 L Cholesterol/HDL Ratio 5.07 <Natty Garcia - Last Filed: 11/09/23 17:15> - Studies Laboratory Data (last 24 hrs) 11/09/23 11/09/23 11/09/23 02:34 02:34 02:34 WBC 12.50 H Hgb 10.8 L Hct 32.7 L Plt Count 275 Sodium 144 Potassium 3.8 D BUN 28 H Creatinine 0.75 Glucose 188 H Phosphorus 4.5 Magnesium 1.5 L Triglycerides 69 Cholesterol 147 HDL Cholesterol 29 L Cholesterol/HDL Ratio 5.07 <Domenica Anna - Last Filed: 11/09/23 22:24> Assessment And Plan - Plan Assessment Plan satus post Cardiac arrest Acute hypoxic respiratory failure improving Cardiogenic shock from cardiac arrest Admit to ICU, intubated after cardiac arrest in surgery Pulmonary Consult for Vent manament venting weaning in process Nebs, solumedrol, Norepi, Propofol for sedation Surg consulted for Central IV line Pressors ABG ordered CT PE ordered rule out PE IMPRESSION: Negative for a pulmonary embolism. Mild to moderate predominantly ground-glass opacities within the lungs may represent pulmonary edema or infection. FINDINGS: A pulmonary embolus is not seen labs ddimer, cbc, bmp, mag, bnp, ordered ECHO OMMENTS: 1. NORMAL LEFT VENTRICULAR SYSTOLIC FUNCTION, EJECTINO FRACTION 65%, NORMAL WALL MOTION 2. NORMAL DIASTOLIC FUNCTION 3. MILD TRICUSPID REGURGITATION, RIGHT VENTRICULAR SYSTOLIC PRESSURE 35-40 mmHg 4. INFERIOR VENA CAVA COLLAPSING Lactic acidosis Leukocytosis WBCs 12.50 Elevated D-dimer D-dimer 9953 Breast cancer unkn stage B) breast mastectomy On chemotherapy sees Dr Georges Unintentional weight loss >60 lbs daily wt, cushion filler consult when more alert Essential HTN Resume home meds when tolerating PO Diabetes type 2 ack achs, ssi Blood glucose 200, 182, Full Code DVT Lovenox Diet NPO GI PPI BID Disposition: Home, independant prior to admission Discharge Plan: Home - Code Status/Comfort Care Code Status: Full Code Critical Care: No Time Spent Managing PTS Care (In Minutes): 65 <Natty Garcia - Last Filed: 11/09/23 17:15> - Plan Pt seen and examined. I agree with the note by the DEVELOPMENT PLANNER. Pt was extubated this am. Off sedated in order to monitor her mental status. Will continue prn morphine and precedex for agitation. Continue prn duoneb, steroid, pressor and oxygen. Pulm and cardiology are following Physician Review Additional Text: 11/09/23 12:21 Pt seen and examined. I agree with note by the DEVELOPMENT PLANNER. Pt was extubated this am. CT head from 11/08/23 showed an 8 millimeter low-density area right occipital lobe most likely old infarct. Will monitor her mentaal status and respiratory status. Troponin is trending down ( 149.9 -> 145 -> 119. ABG shows pH 7.49, pCO2 32.8 and pO2 222. Echo shows EF 65%. Pulm and cardiology are following. <Domneica Anna - Last Filed: 11/09/23 22:24>
[2023-11-09] MEDS ORDERED: ENOXAPARIN 40 MG/0.4 ML SQ SCH (09:00)
[2023-11-09] MEDS: Magnesium Sulfate 2gm IVPB 2 G/50 ML BAG IV ONE (09:16)
--- NOTE | 2023-11-09 10:17 | RAD REPORT ---
EXAM DESCRIPTION: RAD - Chest Single View - 11/09/2023 10:05 am CLINICAL HISTORY: resp failure COMPARISON: Chest Single View dated 11/08/2023; Chest Single View dated 02/14/2023; Chest Pa And Lat ( 2 Views) dated 01/02/2023; Chest For Pe Angio dated 11/08/2023 FINDINGS: Lines: Endotracheal tube at the tip of the aortic arch in satisfactory position. Lungs: Bilateral interstitial and airspace opacities, similar to 11/08/2023 . . Pleural: No significant pleural effusions or pneumothorax. Cardiac: The heart size is within normal limits. Mediastinum: Within normal limits. Bones: No acute fractures. Other: Soft tissue yanira at the right chest. Axillary surgical clips . IMPRESSION: Similar bilateral airspace opacities that may reflect edema and/or pneumonia. ET tube in satisfactory position
[2023-11-09] MEDS ORDERED: INSULIN REGULAR (HUMAN) 100 UNIT/ML ONE (12:26)
--- NOTE | 2023-11-09 12:51 | P.PN ---
Subjective Date of Service: 11/09/23 Chief Complaint: Respiratory failure patient on a ventilator Subjective: Improving (Patient is improving doing well currently being weaned off the ventilator blood pressure stable oxygenation is only a 35% Fio2) Review of Systems is unable to be obtained Physical Examination - Vital Signs Temperature: 97.8 F Blood Pressure: 100/66 Pulse: 97 Respirations: 22 Pulse Ox (%): 100 - Physical Exam General: Unresponsive Respiratory: Clear to auscultation bilaterally, Diminished Cardiovascular: No edema, Regular rate/rhythm, Normal S1 S2 - Studies Laboratory Data (last 24 hrs) 11/09/23 11/09/23 11/09/23 02:34 02:34 02:34 WBC 12.50 H Hgb 10.8 L Hct 32.7 L Plt Count 275 Sodium 144 Potassium 3.8 D BUN 28 H Creatinine 0.75 Glucose 188 H Phosphorus 4.5 Magnesium 1.5 L Triglycerides 69 Cholesterol 147 HDL Cholesterol 29 L Cholesterol/HDL Ratio 5.07 Assessment And Plan - Current Problems (Diagnosis) (1) Respiratory failure Current Visit: Yes Status: Acute Plan: Patient admitted with respiratory failure no evidence of thromboembolism echocardiogram is normal CT scan shows bilateral patchy infiltrates she may have aspirated plan to now wean off the ventilator once she's able to eat and bring change to PO AugmentinChest x-ray reviewed some patchy changes in the right side will plan to wean in extubated today Qualifiers: Chronicity: acute
--- NOTE | 2023-11-09 13:18 | PN ---
Brief History: Patient is a 63-year-old female with bilateral breast cancer, triple negative, who go t chemotherapy and partial immunotherapy, came in for removal of her Port-A-Cath and during the middl e of the procedure, became hypoxic and bradycardic, requiring CPR and then ACLS protocol was followed . The patient was intubated and taken to ICU yesterday. She remained on vent support yesterday. Sh e required initially Levophed to maintain her blood pressure, which was weaned off. She needed Prece dex to keep her still as she was trying to grab her ET tube. The events of last night were reviewed with the nurses in detail. No significant events. She is still sedated on Precedex, which is being weaned down. She is requiring minimum support from the vent. Laboratory Data: Reviewed. Her CT of the chest and head were reviewed. Echocardiogram was reviewed . Objective: Vital Signs: Currently stable. She is afebrile. General: Her examination reveals no acute changes. Skin: Dressing is clean, dry, intact. Assessment: Status post Port-A-Cath removal in the patient who underwent CPR via the ACLS protocol, currently intubated. Recommendation: Follow up from the Medical team as well as Pulmonary and Cardiology. From a surgica l standpoint, there is nothing to offer at this time. We will keep monitoring this patient on her pr ogress while she is in the hospital. /MODL Voice ID: [id number] Report ID: [id number]
--- NOTE | 2023-11-09 14:28 | EKG ---
Test Date: 2023-11-08 Test Time: 06:45:34 Rehabilitation Inspector: TONIA MEASUREMENT RESULTS: Intervals: Rate: 74 [place]: 162 QRSD: 132 QT: 444 QTc: 492 [place]: P: 73 [place]: 162 QRS: 102 T: -9 INTERPRETIVE STATEMENTS: Sinus rhythm with occasional premature ventricular complexes Right bundle branch block T wave abnormality, consider lateral ischemia Abnormal ECG Compared to ECG 01/02/2023 08:13:59 Ventricular premature complex(es) now present Right bundle-branch block now present T-wave abnormality now present Possible ischemia now present Sinus arrhythmia no longer present Electronically Signed On 11-09-23 14:23:59 CDT by Reed Dixon
[2023-11-09] MEDS ORDERED: MORPHINE 2 MG/ML SYR ONE ×2 (15:19→22:45)
[2023-11-09] MEDS: MORPHINE 2 MG/ML SYR IV ONE (15:23)
[2023-11-09] MEDS: MORPHINE 2 MG/ML SYR IV PRN (22:48)
[2023-11-10] MEDS ORDERED: METHYLPREDNISOLONE 125 MG INJ ONE ×3 (00:42→11:42)
[2023-11-10] MEDS ORDERED: INSULIN REGULAR (HUMAN) 100 UNIT/ML ONE (00:45)
[2023-11-10] MEDS ORDERED: LORazepam 2 MG/ML VIAL ONE ×3 (02:13→09:48)
[2023-11-10] MEDS: LORazepam 2 MG/ML VIAL IV ONE ×3 (02:21→08:30)
[2023-11-10] MEDS ORDERED: NA CHLORIDE 0.9% 100 ML ONE ×2 (06:15→14:44)
[2023-11-10] MEDS ORDERED: METRONIDAZOLE 500mg IVPB 500 MG/100 ML BAG IV ONE (06:15)
[2023-11-10] MEDS ORDERED: CEFEPIME 2 GM VIAL ONE ×2 (06:15→14:44)
--- NOTE | 2023-11-10 06:54 | P.PN ---
Subjective Date of Service: 11/10/23 Chief Complaint: Respiratory failure patient on a ventilator Status postcardiac arrest, weaned off of ventilator, patient extubated Reports mild anxiety, agitation, daughter at bedside, O2 at 2 L Plan for physical therapy today General: , sedated, Other HEENT: Atraumatic, Normocephalic Neck: Supple, JVD not distended Respiratory: Equal unlabored on nasal cannula Cardiovascular: No edema, Normal pulses, Capillary refill: <2 Seconds Gastrointestinal: Normal bowel sounds, Soft and benign Musculoskeletal: No clubbing, No swelling Integumentary: No rashes, No breakdown Neurological: Other, mild anxiety <Natty Garcia - Last Filed: 11/10/23 13:04> Date of Service: 11/10/23 <Domenica Anna - Last Filed: 11/10/23 13:17> Review of Systems per HPI <Natty Garcia - Last Filed: 11/10/23 13:04> Physical Examination - Vital Signs Temperature: 98.7 F Blood Pressure: 122/80 Pulse: 108 Respirations: 18 Pulse Ox (%): 100 <Natty Garcia - Last Filed: 11/10/23 13:04> - Studies Laboratory Data (last 24 hrs) 11/10/23 11/10/23 11/10/23 08:35 08:35 05:00 WBC 14.30 H Hgb 9.5 L Hct 28.8 L Plt Count 276 Sodium 142 Potassium 3.7 BUN 25 H Creatinine 0.66 Glucose 173 H Phosphorus 2.2 L Cancelled Magnesium 2.2 <Domenica Anna - Last Filed: 11/10/23 13:17> Assessment And Plan - Plan Assessment Plan satus post Cardiac arrest Acute hypoxic respiratory failure improving Possible aspiration pneumonia, Cardiogenic shock from cardiac arrest Admit to ICU, intubated after cardiac arrest in surgery Pulmonary Consult for Vent manament venting weaning in process Nebs, solumedrol, Norepi, Propofol for sedation Surg consulted for Central IV line Pressors ABG ordered CT PE ordered rule out PE IMPRESSION: Negative for a pulmonary embolism. Mild to moderate predominantly ground-glass opacities within the lungs may represent pulmonary edema or infection. FINDINGS: A pulmonary embolus is not seen labs ddimer, cbc, bmp, mag, bnp, ordered ECHO OMMENTS: 1. NORMAL LEFT VENTRICULAR SYSTOLIC FUNCTION, EJECTINO FRACTION 65%, NORMAL WALL MOTION 2. NORMAL DIASTOLIC FUNCTION 3. MILD TRICUSPID REGURGITATION, RIGHT VENTRICULAR SYSTOLIC PRESSURE 35-40 mmHg 4. INFERIOR VENA CAVA COLLAPSING 11/09 transferred to the floor today, PT eval to ambulate, O2 at 2 L 11/08 chest x-ray Lungs: Bilateral interstitial and airspace opacities, similar to 11/08/2023 . Nebulizers, IV Flagyl and cefepime for possible aspiration pneumonia pneumonia, pulmonary following Lactic acidosis Leukocytosis WBCs 12.50 Elevated D-dimer improving D-dimer 9953, 968 Unintentional weight loss Protein calorie malnutrition Dietitian consult Supplements 3 times daily with meals Breast cancer unkn stage B) breast mastectomy On chemotherapy sees Dr Georges Unintentional weight loss >60 lbs daily wt, payroll benefits administrator consult when more alert Essential HTN Resume home meds when tolerating PO Diabetes type 2 ack achs, ssi Blood glucose 200, 182, Full Code DVT Lovenox Diet NPO GI soft diet Disposition: Home, independant prior to admission Discharge Plan: Home - Code Status/Comfort Care Code Status: Full Code Critical Care: Yes Time Spent Managing PTS Care (In Minutes): 65 <Natty Garcia - Last Filed: 11/10/23 13:04> - Plan Pt seen and examined. I agree with the note by the GEAR CUTTER. Pt is confused. Will hold sedatives. Will continue ICU level of care. <Domenica Anna - Last Filed: 11/10/23 13:17>
--- NOTE | 2023-11-10 07:53 | RAD REPORT ---
EXAM DESCRIPTION: Mahsajan Single View11/10/2023 5:42 am CLINICAL HISTORY: Respiratory failure COMPARISON: November 09, 2023 FINDINGS: No significant change in bilateral pulmonary opacities Heart is normal size IMPRESSION: Stable bilateral pulmonary opacities
[2023-11-10 08:53] LABS: Absolute Lymphocytes (CBC) 1.6 K/uL (0.7-4.9); Absolute Monocytes 0.3 K/uL (0.1-1.3); Absolute Neutrophil 12.4 K/uL (1.8-8.0); Basophils % 0.1 % (0-1.3); Hematocrit 28.8 % (36.0-45.0); Hemoglobin 9.5 g/dL (12.0-15.0); Lymphocytes % 10.9 % (15.3-44.8); MCH 27.7 pg (27.0-35.0); MCHC 33.2 g/dL (32.0-36.0); MCV 83.5 fL (80-100); MPV 8.1 fL (7.6-11.3); Monocytes % 2.2 % (3.3-12.3); Neutrophils % 86.8 % (41.7-73.7); Platelets 276 thou/uL (152-406); RBC Red Blood Cell Count 3.45 M/uL (3.86-4.86); Red Cell Distribution Width 15.1 % (12.1-15.2)
[2023-11-10 09:10] LABS: Anion Gap 8.7 mEq/L (5.0-15.0); Magnesium 2.2 mg/dL (1.6-2.4); Phosphorus 2.2 mg/dL (2.5-4.9); Potassium 3.7 mEq/L (3.5-5.1)
[2023-11-10 09:12] LABS: Troponin High Sensitivity 104.2 pg/mL (<58.9)
[2023-11-10 09:30] LABS: Blood Morphology Comment NOT SEEN (NOT SEEN); Platelet Estimate ADEQ; White Blood Cell Scan OK (OK)
--- NOTE | 2023-11-10 11:15 | PN ---
Date of Progress Note: 11/10/2023 Subjective: Patient is awake, alert, confused, but she recognizes family members. She does not melony gnize me. She is wanting a popsicle. She is hungry. She is off Precedex and no vasopressors. Objective: Vital Signs: Significant for slight tachycardia. She is afebrile. Skin: Dressing is clean, dry, intact. Assessment: Status post Port-A-Cath removal in a patient who had a cardiopulmonary arrest and underw ent resuscitation per protocol. Clinically, she is doing much better. Recommendations: Continue to monitor and support the patient as she improves, management per the Med [facility] team. Will sign off. She has no surgical issues at this time. Please re-consult surgery p.r.n . /MODL Voice ID: [id number] Report ID: [id number]
[2023-11-10] MEDS: GLUCERNA SHAKE 237 ML CAN PO SCH (11:44)
--- NOTE | 2023-11-10 12:41 | P.PN ---
Subjective Date of Service: 11/10/23 Chief Complaint: Altered mental status patient extubated delirious Physical Examination - Vital Signs Temperature: 98.7 F Blood Pressure: 108/75 Pulse: 77 Respirations: 18 Pulse Ox (%): 100 - Studies Laboratory Data (last 24 hrs) 11/10/23 11/10/23 11/10/23 08:35 08:35 05:00 WBC 14.30 H Hgb 9.5 L Hct 28.8 L Plt Count 276 Sodium 142 Potassium 3.7 BUN 25 H Creatinine 0.66 Glucose 173 H Phosphorus 2.2 L Cancelled Magnesium 2.2 Assessment And Plan - Current Problems (Diagnosis) (1) Respiratory failure Current Visit: Yes Status: Acute Plan: Patient admitted with respiratory failure no evidence of thromboembolism echocardiogram is normal CT scan shows bilateral patchy infiltrates she may have aspirated plan to now wean off the ventilator once she's able to eat and bring change to PO AugmentinChest x-ray reviewed some patchy changes in the right side will plan to wean in extubated today Qualifiers: Chronicity: acute
--- NOTE | 2023-11-10 14:54 | P.PN ---
Subjective Date of Service: 11/10/23 Chief Complaint: Respiratory failure patient on a ventilator Subjective: No new changes Review of Systems 10-point ROS is otherwise unremarkable Physical Examination - Vital Signs Temperature: 98.7 F Blood Pressure: 122/80 Pulse: 108 Respirations: 18 Pulse Ox (%): 100 - Physical Exam General: Alert HEENT: Atraumatic Neck: Supple Respiratory: Clear to auscultation bilaterally Cardiovascular: No edema, Normal S1 S2 Gastrointestinal: Normal bowel sounds - Studies Laboratory Data (last 24 hrs) 11/10/23 11/10/23 11/10/23 08:35 08:35 05:00 WBC 14.30 H Hgb 9.5 L Hct 28.8 L Plt Count 276 Sodium 142 Potassium 3.7 BUN 25 H Creatinine 0.66 Glucose 173 H Phosphorus 2.2 L Cancelled Magnesium 2.2 Assessment And Plan - Current Problems (Diagnosis) (1) Cardiac arrest Current Visit: Yes Status: Acute Plan: Not clear what was the exact etiology behind patient arrest, EKG reviewed and shows some ST depressions in inferolateral leads but no ST elevations, echo was reviewed and shows normal LV and RV systolic function. most likely secondary to respiratory failure. (2) Hypertension Current Visit: Yes Status: Acute Plan: Patient BP is soft, so continue to monitor. (3) Respiratory failure Current Visit: Yes Status: Acute Plan: Patient is extubated. Qualifiers: Chronicity: acute
[2023-11-11 05:53] LABS: Absolute Lymphocytes (CBC) 1.4 K/uL (0.7-4.9); Absolute Monocytes 0.3 K/uL (0.1-1.3); Absolute Neutrophil 8.7 K/uL (1.8-8.0); Basophils % 0.1 % (0-1.3); Eosinophils % 0.1 % (0-4.4); Hematocrit 29.6 % (36.0-45.0); Lymphocytes % 13.5 % (15.3-44.8); MCH 27.9 pg (27.0-35.0); MCHC 33.7 g/dL (32.0-36.0); MCV 82.9 fL (80-100); MPV 8.3 fL (7.6-11.3); Monocytes % 2.6 % (3.3-12.3); Neutrophils % 83.7 % (41.7-73.7); Nucleated Red Blood Cells % 0.1 % (0-0); Platelets 276 thou/uL (152-406); RBC Red Blood Cell Count 3.57 M/uL (3.86-4.86); Red Cell Distribution Width 14.5 % (12.1-15.2)
[2023-11-11 06:02] LABS: Anion Gap 9.1 mEq/L (5.0-15.0); Magnesium 2.2 mg/dL (1.6-2.4); Potassium 3.1 mEq/L (3.5-5.1)
[2023-11-11] MEDS ORDERED: clonazePAM 0.5 MG TAB PO PRN (07:21)
[2023-11-11] MEDS ORDERED: D50W 25 GM/50 ML SYRINGE IV PRN (07:21)
[2023-11-11] MEDS: INSULIN REGULAR (HUMAN) 100 UNIT/ML SQ SCH (07:21)
[2023-11-11] MEDS ORDERED: GLUCAGON 1 MG/VIAL IM PRN (07:21)
[2023-11-11] MEDS: POTASSIUM 25 MEQ EFFERV TAB PO ONE (08:08)
--- NOTE | 2023-11-11 08:23 | P.PN ---
Subjective Date of Service: 11/11/23 Chief Complaint: Respiratory failure patient on a ventilator weaned off vent, O2 at 2 L weaned off to room air Cardiology following for elevated troponins, no chest pain NV, plan decrease diet to full liquid, start daily pstool softners General: , Awake and alert HEENT: Atraumatic, Normocephalic Neck: Supple, JVD not distended Respiratory: Equal unlabored Cardiovascular: No edema, Normal pulses, Capillary refill: <2 Seconds Gastrointestinal: Normal bowel sounds, Soft and benign Musculoskeletal: No clubbing, No swelling Integumentary: No rashes, No breakdown Neurological: AOX3 <Natty Garcia - Last Filed: 11/11/23 13:27> Date of Service: 11/11/23 <Domenica Anna - Last Filed: 11/11/23 17:22> Review of Systems Per HPI <Natty Garcia - Last Filed: 11/11/23 13:27> Physical Examination - Vital Signs Temperature: 97.9 F Blood Pressure: 139/64 Pulse: 89 Respirations: 16 Pulse Ox (%): 94 - Studies Laboratory Data (last 24 hrs) 11/11/23 11/11/23 11/10/23 04:57 04:57 08:35 WBC 10.30 Hgb 10.0 L Hct 29.6 L Plt Count 276 Sodium 142 142 Potassium 3.1 L D 3.7 BUN 20 H 25 H Creatinine 0.58 0.66 Glucose 191 H 173 H Phosphorus 2.2 L Magnesium 2.2 2.2 11/10/23 11/10/23 08:35 05:00 WBC 14.30 H Hgb 9.5 L Hct 28.8 L Plt Count 276 Sodium Potassium BUN Creatinine Glucose Phosphorus Cancelled Magnesium <Natty Garcia - Last Filed: 11/11/23 13:27> - Studies Laboratory Data (last 24 hrs) 11/11/23 11/11/23 04:57 04:57 WBC 10.30 Hgb 10.0 L Hct 29.6 L Plt Count 276 Sodium 142 Potassium 3.1 L D BUN 20 H Creatinine 0.58 Glucose 191 H Magnesium 2.2 <Domenica Anna - Last Filed: 11/11/23 17:22> Assessment And Plan - Plan Assessment Plan satus post Cardiac arrest Acute hypoxic respiratory failure improving Possible aspiration pneumonia, Cardiogenic shock from cardiac arrest Elevated troponin improving Admit to ICU, intubated after cardiac arrest in surgery transferred to the floor 11/10 Pulmonary Consult respiratory failure Cardiology following for elevated troponin, elevated D-dimer Nebs, solumedrol, Norepi, Propofol for sedation during ICU, weaned off Surg following Dr. Garcia CT PE ordered rule out PE IMPRESSION: Negative for a pulmonary embolism. Mild to moderate predominantly ground-glass opacities within the lungs may represent pulmonary edema or infection. FINDINGS: A pulmonary embolus is not seen labs ddimer, cbc, bmp, mag, bnp, ordered ECHO OMMENTS: 1. NORMAL LEFT VENTRICULAR SYSTOLIC FUNCTION, EJECTINO FRACTION 65%, NORMAL WALL MOTION 2. NORMAL DIASTOLIC FUNCTION 3. MILD TRICUSPID REGURGITATION, RIGHT VENTRICULAR SYSTOLIC PRESSURE 35-40 mmHg 4. INFERIOR VENA CAVA COLLAPSING 11/09 transferred to the floor today, PT eval to ambulate, O2 at 2 L 11/08 chest x-ray Lungs: Bilateral interstitial and airspace opacities, similar to 11/08/2023 . Nebulizers, IV Flagyl and cefepime for possible aspiration pneumonia pneumonia, pulmonary following PT11/09 mod to max assist 11/09 Speech therapy eval-cognitive deficits Will need PT, speech outpatient or with home health after discharge Lactic acidosis improved Leukocytosis improved likely secondary from steroid use WBCs 12.50 WBCs norma3 IV Flagyl, cefepime completed Elevated D-dimer improving D-dimer 9953, 968 Nausea vomiiting 11/10 downgrade diet to full lquid, adv as tolerated, pt taking ensure, Start daily stool softners Unintentional weight loss postchemotherapy Protein calorie malnutrition Dietitian consult Supplements 3 times daily with meals Breast cancer unkn stage B) breast mastectomy On chemotherapy sees Dr Georges Unintentional weight loss >60 lbs daily wt, c developer consult when more alert Essential HTN Resume home meds when tolerating PO Diabetes type 2 ack achs, ssi Blood glucose 200, 182, Hypokalemia potassium 3.1, And electrolytes replace as needed Full Code DVT Lovenox Diet advance as tolerated GI soft diet Disposition: Home, independant prior to admission Discharge Plan: Home Critical Care: No Time Spent Managing PTS Care (In Minutes): 35 <Natty Garcia - Last Filed: 11/11/23 13:27> - Plan Pt seen and examined. I agree with the note by the RETORT FIREMAN. her mental status is improving. Will continue abx and prn duoneb. <Domenica Anna - Last Filed: 11/11/23 17:22>
[2023-11-11] MEDS: METHYLPREDNISOLONE 40 MG INJ IV SCH (08:59)
[2023-11-11] MEDS: ONDANSETRON 4 MG/2 ML VIAL IV PRN (08:59)
[2023-11-11] MEDS ORDERED: POTASSIUM CL SA 10 MEQ TAB PO SCH (09:00)
[2023-11-11] MEDS ORDERED: AMOX/K CLAV 500 MG TAB PO SCH (09:00)
--- NOTE | 2023-11-11 10:49 | PN ---
Date of Progress Note: 11/11/2023 Subjective: The patient is awake, alert, oriented x3. She had a little bit of vomiting this morning after eating breakfast. Objective: Vital Signs: Stable. She is afebrile. Skin: Dressing is clean, dry, and intact. Laboratory Data: White count is normal. Assessment: Status post Port-A-Cath removal. Recommendations: Continue physical therapy and medical management. The patient appears to be gettin g close to be cleared for discharge. From a surgery standpoint, she is cleared from discharge. She can follow up with me in 1-2 weeks. /MODL Voice ID: [id number] Report ID: [id number]
[2023-11-11] MEDS ORDERED: PROMETHAZINE INJ 25 MG/ML AMP IV PRN (11:54)
[2023-11-11] MEDS: ONDANSETRON 4 MG/2 ML VIAL IV ONE (12:02)
[2023-11-11] MEDS: levoFLOXacin 500 MG TAB PO SCH (17:00)
[2023-11-11 23:11] VITALS: O2SAT 98
[2023-11-12 04:54] LABS: Absolute Lymphocytes (CBC) 1.5 K/uL (0.7-4.9); Absolute Monocytes 0.3 K/uL (0.1-1.3); Absolute Neutrophil 6.4 K/uL (1.8-8.0); Basophils % 0.2 % (0-1.3); Lymphocytes % 17.8 % (15.3-44.8); MCH 27.1 pg (27.0-35.0); MCHC 32.5 g/dL (32.0-36.0); MCV 83.3 fL (80-100); MPV 8.3 fL (7.6-11.3); Monocytes % 3.6 % (3.3-12.3); Neutrophils % 78.4 % (41.7-73.7); Nucleated Red Blood Cells % 0.1 % (0-0); Platelets 272 thou/uL (152-406); RBC Red Blood Cell Count 4.08 M/uL (3.86-4.86); Red Cell Distribution Width 14.4 % (12.1-15.2)
[2023-11-12 05:25] LABS: Anion Gap 9.2 mEq/L (5.0-15.0); Magnesium 2.3 mg/dL (1.6-2.4); Potassium 3.2 mEq/L (3.5-5.1)
[2023-11-12] MEDS: POTASSIUM CL SA 10 MEQ TAB PO ONE (08:42)
--- NOTE | 2023-11-12 08:54 | P.PN ---
Subjective Date of Service: 11/12/23 Chief Complaint: Respiratory failure patient on a ventilator weaned off vent, O2 at 2 L weaned off to room air Cardiology following for elevated troponins, no chest pain NV, plan decrease diet to full liquid, start daily stool softners General: , Awake and alert HEENT: Atraumatic, Normocephalic Neck: Supple, JVD not distended Respiratory: Equal unlabored Cardiovascular: No edema, Normal pulses, Capillary refill: <2 Seconds Gastrointestinal: Normal bowel sounds, Soft and benign Musculoskeletal: No clubbing, No swelling Integumentary: No rashes, No breakdown Neurological: AOX3 Review of Systems per HPI Physical Examination - Vital Signs Temperature: 97.3 F Blood Pressure: 111/51 Pulse: 60 Respirations: 18 Pulse Ox (%): 100 - Studies Laboratory Data (last 24 hrs) 11/12/23 11/12/23 04:27 04:27 WBC 8.20 Hgb 11.0 L D Hct 34.0 L Plt Count 272 Sodium 140 Potassium 3.2 L BUN 19 H Creatinine 0.67 Glucose 220 H Magnesium 2.3 Assessment And Plan - Plan Assessment Plan satus post Cardiac arrest Acute hypoxic respiratory failure improving Possible aspiration pneumonia, Cardiogenic shock from cardiac arrest Elevated troponin improving Admit to ICU, intubated after cardiac arrest in surgery transferred to the floor 11/10 Pulmonary Consult respiratory failure Cardiology following for elevated troponin, elevated D-dimer Nebs, solumedrol, Norepi, Propofol for sedation during ICU, weaned off Surg following Dr. Garcia CT PE ordered rule out PE IMPRESSION: Negative for a pulmonary embolism. Mild to moderate predominantly ground-glass opacities within the lungs may represent pulmonary edema or infection. FINDINGS: A pulmonary embolus is not seen labs ddimer, cbc, bmp, mag, bnp, ordered ECHO OMMENTS: 1. NORMAL LEFT VENTRICULAR SYSTOLIC FUNCTION, EJECTINO FRACTION 65%, NORMAL WALL MOTION 2. NORMAL DIASTOLIC FUNCTION 3. MILD TRICUSPID REGURGITATION, RIGHT VENTRICULAR SYSTOLIC PRESSURE 35-40 mmHg 4. INFERIOR VENA CAVA COLLAPSING 11/09 transferred to the floor today, PT eval to ambulate, O2 at 2 L 11/08 chest x-ray Lungs: Bilateral interstitial and airspace opacities, similar to 11/08/2023 . Nebulizers, IV Flagyl and cefepime for possible aspiration pneumonia pneumonia, pulmonary following PT11/09 mod to max assist 11/09 Speech therapy eval-cognitive deficits Will need PT, speech outpatient or with home health after discharge Lactic acidosis improved Leukocytosis improved likely secondary from steroid use WBCs 12.50 WBCs norma3 IV Flagyl, cefepime completed Elevated D-dimer improving D-dimer 9953, 968 Nausea vomiiting 11/10 downgrade diet to full lquid, adv as tolerated, pt taking ensure, Start daily stool softners Unintentional weight loss postchemotherapy Protein calorie malnutrition NV Dietitian consult, as needed antiemetic glucerna Supplements 3 times daily with meals. 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
--- NOTE | 2023-11-12 09:41 | P.PN ---
Subjective Date of Service: 11/11/23 Chief Complaint: Altered mental status Subjective: Improving (Doign well Mental status has imroved) Review of Systems is unable to be obtained Physical Examination - Vital Signs Temperature: 97.3 F Blood Pressure: 111/51 Pulse: 60 Respirations: 18 Pulse Ox (%): 100 - Physical Exam General: Alert, Oriented x1, Cooperative Neck: Supple Respiratory: Clear to auscultation bilaterally Cardiovascular: No edema, Regular rate/rhythm, Normal S1 S2 - Studies Laboratory Data (last 24 hrs) 11/12/23 11/12/23 04:27 04:27 WBC 8.20 Hgb 11.0 L D Hct 34.0 L Plt Count 272 Sodium 140 Potassium 3.2 L BUN 19 H Creatinine 0.67 Glucose 220 H Magnesium 2.3
--- NOTE | 2023-11-12 09:43 | P.PN ---
Subjective Date of Service: 11/12/23 Chief Complaint: Altered mental status Subjective: Improving (Doing much better today. Daughters at bedside No complants) Review of Systems Unremarkable Physical Examination - Vital Signs Temperature: 97.3 F Blood Pressure: 111/51 Pulse: 60 Respirations: 18 Pulse Ox (%): 100 - Physical Exam General: Alert, In no apparent distress, Oriented x3 Neck: Supple Respiratory: Clear to auscultation bilaterally Cardiovascular: No edema, Regular rate/rhythm - Studies Laboratory Data (last 24 hrs) 11/12/23 11/12/23 04:27 04:27 WBC 8.20 Hgb 11.0 L D Hct 34.0 L Plt Count 272 Sodium 140 Potassium 3.2 L BUN 19 H Creatinine 0.67 Glucose 220 H Magnesium 2.3 Assessment And Plan - Current Problems (Diagnosis) (1) Delirium Current Visit: Yes Status: Acute Plan: Post CP arrest delirium. Doing well. Back to baseline. Daughters at bedside. No complaints. Plan for discahrge. On Levaquin for 3 days. Labs reviewd labs normal VS stable on RA
[2023-11-12] MEDS: POTASSIUM 25 MEQ EFFERV TAB PO ONE (09:45)
--- NOTE | 2023-11-12 10:23 | P.DS ---
Admission Date: 11/08/23 Discharge Date: 11/12/23 Reason for Admission: Altered mental status Brief History of Present Illness: 63 year old female with HTN, breast cancer, s/p 02/10 B) mastectomy, on chemo is being transferred from OR for cardiac arrest. She was unable to tolerate chemo, was having port a cath removed in surgery when she was not ventilating, when into cardiac arrest, crescencio ribeiro was called, patient recieved 4 rounds of EPI, 4 Atropine, was intuabed, transfered to ICU for s/p cardiac arrest, acute respiratory failure. is at bedside is primary history reports patient was unable to tolerate chemo, has had 60 wt loss, severe peripheral neuropathy. fatigue, unable to ambulate independantly after 6 rounds of chemo, Onc followed by Dr Georges. reports his as had wheezing, last week, however no prior history of Asthma. She was AOX4 prior to surgery/chemo, resides at home. Transferred to ICU after Intubation on ventilator for managment. Plan to admit for Acute respiratory failure, cardiac arrest, hypotensive shock, Dr Wilde to consult for pulmonary, respiratory failure managment. Laboratory evaluation, Microcytic anemia, HH 11.6/34.7, ANILA Bun 23/0.7, CXR after intubation, Satisfactory positioning of the endotracheal tube. Sequelae of central venous congestion/CHF, General: , Awake and alert HEENT: Atraumatic, Normocephalic Neck: Supple, JVD not distended Respiratory: Equal unlabored Cardiovascular: No edema, Normal pulses, Capillary refill: <2 Seconds Gastrointestinal: Normal bowel sounds, Soft and benign Musculoskeletal: No clubbing, No swelling Integumentary: No rashes, No breakdown Neurological: AOX3 Hospital Course: 63 year-old female patient presented with cardiac arrest after surgery complication of acute respiratory failure. Was noted to have possible aspiration pneumonia, elevated troponin, abnormal EKG. Condition improved with IV antibiotics, oxygen, nebulizer. Patient tolerating diet, stable for discharge to home with follow-up appointment with primary care physician, will need to follow-up with cardiology after discharge, follow-up with pulmonary after discharge PROBLEM: Acute respiratory failure Possible aspiration pneumonia Elevated troponin Abnormal EKG Nausea New prescription albuterol inhaler Azithromycin 1 daily for 5 days Zofran for nausea 1 every 6 hours Follow-up with pulmonary after discharge Follow-up with cardiology after discharge Follow-up with surgery after discharge Dr. Garcia Call primary care office to set up home health on Monday Discharge home with rolling walker Continue home medicines as previously prescribed GOAL: Clear understanding of disease process INSTRUCTIONS: Physician Discharge Instructions: -Follow-up with PCP in 1 to 2 weeks -Please call f any questions regarding hospital stay -Please call nursing station at [phone] if any nursing or medication questions -Return to the emergency room if symptoms worsen Diet: ADA, low sodium Activity: Fall precautions <Natty Garcia - Last Filed: 11/12/23 16:12> Admission Date: 11/08/23 Discharge Date: 11/12/23 Hospital Course: Pt seen and examined. I agree with the note by the RELAY WORKER. Pt's mental status has significantly improved. her short term memory is a little fussy. Will complete abx at home. Ok to discharge pt. <Domenica Anna - Last Filed: 11/12/23 16:59> Disposition: DC HOME/HOME HEALTH CARE Discharge Condition: GOOD Vital Signs/Physical Exam: Temp Pulse Resp BP Pulse Ox 97.3 F 60 18 111/51 L 100 11/12/23 09:43 11/12/23 09:43 11/12/23 09:43 11/12/23 09:43 11/12/23 09:43 Laboratory Data at Discharge: WBC 8.20 thou/uL (4.3-10.9) 11/12/23 04:27 Hgb 11.0 g/dL (12.0-15.0) L D 11/12/23 04:27 Hct 34.0 % (36.0-45.0) L 11/12/23 04:27 Plt Count 272 thou/uL (152-406) 11/12/23 04:27 PT 12.5 SECONDS (9.5-12.5) 11/08/23 07:20 INR 1.14 11/08/23 07:20 APTT 34.7 SECONDS (24.3-36.9) 11/08/23 07:20 Sodium 140 mEq/L (136-145) 11/12/23 04:27 Potassium 3.2 mEq/L (3.5-5.1) L 11/12/23 04:27 BUN 19 mg/dL (7-18) H 11/12/23 04:27 Creatinine 0.67 mg/dL (0.55-1.02) 11/12/23 04:27 Glucose 220 mg/dL (74-106) H 11/12/23 04:27 Phosphorus 2.2 mg/dL (2.5-4.9) L 11/10/23 08:35 Magnesium 2.3 mg/dL (1.6-2.4) 11/12/23 04:27 Triglycerides 69 mg/dL (<150) 11/09/23 02:34 Cholesterol 147 mg/dL (<200) 11/09/23 02:34 HDL Cholesterol 29 mg/dL (40-60) L 11/09/23 02:34 Cholesterol/HDL Ratio 5.07 11/09/23 02:34 <Natty Garcia - Last Filed: 11/12/23 16:12> Vital Signs/Physical Exam: Temp Pulse Resp BP Pulse Ox 98.3 F 72 16 139/62 100 11/12/23 12:00 11/12/23 12:00 11/12/23 12:00 11/12/23 12:00 11/12/23 12:00 Laboratory Data at Discharge: WBC 8.20 thou/uL (4.3-10.9) 11/12/23 04:27 Hgb 11.0 g/dL (12.0-15.0) L D 11/12/23 04:27 Hct 34.0 % (36.0-45.0) L 11/12/23 04:27 Plt Count 272 thou/uL (152-406) 11/12/23 04:27 PT 12.5 SECONDS (9.5-12.5) 11/08/23 07:20 INR 1.14 11/08/23 07:20 APTT 34.7 SECONDS (24.3-36.9) 11/08/23 07:20 Sodium 140 mEq/L (136-145) 11/12/23 04:27 Potassium Cancelled 11/12/23 15:00 BUN 19 mg/dL (7-18) H 11/12/23 04:27 Creatinine 0.67 mg/dL (0.55-1.02) 11/12/23 04:27 Glucose 220 mg/dL (74-106) H 11/12/23 04:27 Phosphorus 2.2 mg/dL (2.5-4.9) L 11/10/23 08:35 Magnesium 2.3 mg/dL (1.6-2.4) 11/12/23 04:27 Triglycerides 69 mg/dL (<150) 11/09/23 02:34 Cholesterol 147 mg/dL (<200) 11/09/23 02:34 HDL Cholesterol 29 mg/dL (40-60) L 11/09/23 02:34 Cholesterol/HDL Ratio 5.07 11/09/23 02:34 <Domenica Anna - Last Filed: 11/12/23 16:59> Diet: AHA Activity: Fall precautions Time spent managing pt's care (in minutes): 55 <Natty Garcia - Last Filed: 11/12/23 16:12> <Domenica Anna - Last Filed: 11/12/23 16:59> Home Medications: Clopidogrel Bisulfate [Plavix] 75 mg PO DAILY AFTER SUPPER 09/29/16 Glimepiride [Amaryl*] 1 mg PO BID 09/29/16 Metformin HCl [Glucophage] 500 mg PO DAILY 09/29/16 carvediloL [Coreg*] 25 mg PO BID 09/29/16 Amlodipine [Norvasc*] 10 mg PO DAILY 01/02/23 Albuterol Sulfate [Albuterol Sulfate Hfa] 8.5 gm IH Q4HP PRN 30 Days #1 inh Azithromycin Tab [Zithromax*] 250 mg PO DAILY 5 Days #5 tab 11/12/23 Ondansetron [Zofran] 4 mg PO Q6H PRN #30 tab 11/12/23 New Medications: Albuterol Sulfate [Albuterol Sulfate Hfa] 8.5 gm IH Q4HP PRN 30 Days #1 inh PRN Reason: Shortness Of Breath Azithromycin Tab [Zithromax*] 250 mg PO DAILY 5 Days #5 tab Ondansetron [Zofran] 4 mg PO Q6H PRN #30 tab PRN Reason: Nausea / Vomiting Physician Discharge Instructions: 63 year-old female patient presented with cardiac arrest after surgery complication of acute respiratory failure. Was noted to have possible aspiration pneumonia, elevated troponin, abnormal EKG. Condition improved with IV antibiotics, oxygen, nebulizer. Patient tolerating diet, stable for discharge to home with follow-up appointment with primary care physician, will need to follow-up with cardiology after discharge, follow-up with pulmonary after discharge PROBLEM: Acute respiratory failure Possible aspiration pneumonia Elevated troponin Abnormal EKG Discharge with rolling walkter Call PCP on Monday to set up home health/PT for home Physical therapy Follow-up with pulmonary after discharge Follow-up with cardiology after discharge Follow-up with surgery after discharge Dr. Garcia Call primary care office to set up home health on Monday Discharge home with rolling walker Continue home medicines as previously prescribed GOAL: Clear understanding of disease process INSTRUCTIONS: Physician Discharge Instructions: -Follow-up with PCP in 1 to 2 weeks -Please call f any questions regarding hospital stay -Please call nursing station at [phone] if any nursing or medication questions -Return to the emergency room if symptoms worsen Diet: ADA, low sodium Activity: Fall precautions Followup: Subhash Wilde MD [ACTIVE - CAN ADMIT] - 1 Week (Call for appointment.) Bo DANG,Cb Juan DO [Primary Care Provider] - 11/13/23 (Call for appointment.) Milo Gutierres MD [ACTIVE - CAN ADMIT] - 1-2 Weeks (Call for appointment.) Missael Garcia MD [ACTIVE - CAN ADMIT] - 1-2 Weeks (Call for appotment.)
[2023-11-12] MEDS ORDERED: SENOSIDES 8.6 MG TAB PO SCH (12:00)
[2023-11-12 12:43] VITALS: BP 139/62; TEMP 98.3
[2023-11-12] MEDS ORDERED: POTASSIUM CL SA 10 MEQ TAB PO ONE (13:00)
[2023-11-12] MEDS ORDERED: CLOPIDOGREL 75 MG TABLET PO SCH (17:30)
[2023-11-13] MEDS ORDERED: METFORMIN HCL 500 MG TAB PO SCH (09:00)
== END 2023-11-12 12:15 | disposition home or self-care (01) | DRG 208 ==
LOC: OR 06:12 → 3RD-ICU 09:25 → 4TH 11-10 15:32
PROVIDERS: ADMIT Hospitalist; ATTEND Hospitalist
PROC: 5A1945Z Respiratory Ventilation, 24-96 Consecutive Hours (ICD-10-PCS; 2023-11-08)
PROC: 5A12012 Performance of Cardiac Output, Single, Manual (ICD-10-PCS; 2023-11-08)
PROC: 0BH17EZ Insertion of Endotracheal Airway into Trachea, Via Natural or Artificial Opening (ICD-10-PCS; 2023-11-08)
PROC: 0T9B70Z Drainage of Bladder with Drainage Device, Via Natural or Artificial Opening (ICD-10-PCS; 2023-11-08)
PROC: 0JPT0WZ Removal of Totally Implantable Vascular Access Device from Trunk Subcutaneous Tissue and Fascia, Open Approach (ICD-10-PCS; 2023-11-08)
PROC: 4A033R1 Measurement of Arterial Saturation, Peripheral, Percutaneous Approach (ICD-10-PCS; principal; 2023-11-08 07:30)
DX: J96.01 Acute respiratory failure with hypoxia (principal); I21.4 Non-ST elevation (NSTEMI) myocardial infarction; I46.9 Cardiac arrest, cause unspecified; R57.1 Hypovolemic shock; R57.0 Cardiogenic shock; J69.0 Pneumonitis due to inhalation of food and vomit; N17.9 Acute kidney failure, unspecified; E87.29 Other acidosis; E46 Unspecified protein-calorie malnutrition; F05 Delirium due to known physiological condition; C50.911 Malignant neoplasm of unspecified site of right female breast; E87.5 Hyperkalemia; K59.00 Constipation, unspecified; I10 Essential (primary) hypertension; D50.9 Iron deficiency anemia, unspecified; E11.42 Type 2 diabetes mellitus with diabetic polyneuropathy; E87.6 Hypokalemia; D72.829 Elevated white blood cell count, unspecified; Z78.1 Physical restraint status; Z88.0 Allergy status to penicillin; Z79.02 Long term (current) use of antithrombotics/antiplatelets; Z68.23 Body mass index [BMI] 23.0-23.9, adult; Z90.13 Acquired absence of bilateral breasts and nipples; Z79.84 Long term (current) use of oral hypoglycemic drugs; Z79.899 Other long term (current) drug therapy; Z91.013 Allergy to seafood
CPT/HCPCS: 36415; 36600; 70450; 71045; 71275; 72125; 80048; 80061; 82805; 82947; 83605; 83735; 83880; 84100; 84439; 84443; 84484; 85025; 85379; 85610; 85730; 88300; 92523; 92950; 93005; 93306; 94002; 94003; 97110; 97116; 97161; 97530; C9113; J0171; J0461; J0692; J0744; J1100; J1650; J1815; J1940; J2001; J2250; J2270; J2405; J2704; J2920; J2930; J3010; J3475; J7030; J7060; Q9967